=== PATIENT | female | born 1960 | race Caucasian/White ===

== ENCOUNTER 2020-05-26 14:33 | Emergency (ER) | payer OTHER ==
[~2020-05-26] VITALS: Ht 167.6 cm; Wt 83.6 kg
[2020-05-26] MEDS ORDERED: LISI-661 PO (14:41)
[2020-05-26] MEDS ORDERED: METF-960 PO (14:41)
[2020-05-26] MEDS ORDERED: HYDR-1475 PO (14:41)
[2020-05-26 15:33] LABS: COVID AG,FIA SOURCE NASOPHARYNGEAL
[2020-05-26 15:53] LABS: RAPID GROUP A STREP NEGATIVE (NEGATIVE)
[2020-05-26 16:23] VITALS: BP 121/64
== END 2020-05-26 16:28 | disposition home or self-care (01) ==
LOC: EMS 14:33
DX: J03.90 Acute tonsillitis, unspecified (principal); E11.9 Type 2 diabetes mellitus without complications; I10 Essential (primary) hypertension; Z20.828 Contact with and (suspected) exposure to other viral communicable diseases; Z90.710 Acquired absence of both cervix and uterus; Z88.1 Allergy status to other antibiotic agents
CPT/HCPCS: 87426; 87430